=== PATIENT | female | born 1990 | race Hispanic/Latino ===

== ENCOUNTER 2019-04-07 12:48 | Emergency (ER) | payer SELFPAY ==
[2019-04-07 13:45] LABS: Urine Blood NEGATIVE (NEG); Urine Glucose NEGATIVE (NEG); Urine Protein 2+ (NEG); Urine Specific Gravity >1.030 (1.005-1.030)
[2019-04-07] MEDS ORDERED: NA CHLORIDE 0.9% 1,000 ML ONE (14:41)
[2019-04-07 14:42] LABS: Absolute Lymphocytes (CBC) 1.5 K/uL (0.7-4.9); Absolute Monocytes 1.1 K/uL (0.1-1.3); Absolute Neutrophil 6.9 K/uL (1.8-8.0); Basophils % 0.3 % (0-1.3); Hematocrit 40.3 % (36.0-45.0); MPV 8.1 fL (7.6-11.3); Monocytes % 11.8 % (3.3-12.3); RBC Red Blood Cell Count 4.63 M/uL (3.86-4.86)
[2019-04-07] MEDS ORDERED: ONDANSETRON 4 MG/2 ML VIAL ONE (14:53)
[2019-04-07 15:05] LABS: BUN Blood Urea Nitrogen 8 mg/dL (7-18); Bicarbonate 27 mmol/L (21-32); Glucose Level 85 mg/dL (74-106); Sodium Level 140 mmol/L (136-145)
--- NOTE | 2019-04-07 15:31 | EDPHYS ---
Physician Documentation [facility] Name: Christa Waite Age: 28 yrs Sex: Female : 1990 Arrival Date: 04/07/2019 Time: 12:51 Bed 24 Private MD: ED Physician Al Whiting HPI: 04/07 14:15 This 28 yrs old Female presents to ER via Ambulatory with complaints of Fever, kb Diarrhea. 14:15 The patient reports fever, that was measured at 102 degrees Fahrenheit, with an kb emergency department temperature of 97.1 degrees Fahrenheit. Onset: The symptoms/episode began/occurred 3 day(s) ago. Modifying factors: there are no obvious modifying factors. Associated signs and symptoms: Pertinent positives: chills, diarrhea, myalgias, sore throat. Severity of symptoms: At their worst the symptoms were moderate in the emergency department the symptoms are unchanged. The patient has not experienced similar symptoms in the past. The patient has not recently seen a physician. 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 - Social history:: Smoking status: Patient uses tobacco products, denies chronic smoking, but will smoke occasionally. - Ebola Screening: : No symptoms or risks identified at this time. ROS: 14:13 Neck: Negative for injury, pain, and swelling, Cardiovascular: Negative for chest pain, kb palpitations, and edema, Respiratory: Negative for shortness of breath, cough, wheezing, and pleuritic chest pain, Back: Negative for injury and pain, : Negative for injury, bleeding, discharge, and swelling, MS/Extremity: Negative for injury and deformity, Skin: Negative for injury, rash, and discoloration, Neuro: Negative for headache, weakness, numbness, tingling, and seizure. 14:13 Constitutional: Positive for body aches, chills, fatigue, fever, malaise, Negative for poor PO intake, weight loss. 14:13 ENT: Positive for sore throat. 14:13 Abdomen/GI: Positive for diarrhea, Negative for abdominal pain, nausea and vomiting, constipation. Exam: 14:13 Constitutional: This is a well developed, well nourished patient who is awake, alert, kb and in no acute distress. Head/Face: Normocephalic, atraumatic. Neck: Trachea midline, no thyromegaly or masses palpated, and no cervical lymphadenopathy. Supple, full range of motion without nuchal rigidity, or vertebral point tenderness. No Meningismus. Chest/axilla: Normal chest wall appearance and motion. Nontender with no deformity. No lesions are appreciated. Cardiovascular: Regular rate and rhythm with a normal S1 and S2. No gallops, murmurs, or rubs. Normal PMI, no JVD. No pulse deficits. Respiratory: Lungs have equal breath sounds bilaterally, clear to auscultation and percussion. No rales, rhonchi or wheezes noted. No increased work of breathing, no retractions or nasal flaring. Abdomen/GI: Soft, non-tender, with normal bowel sounds. No distension or tympany. No guarding or rebound. No evidence of tenderness throughout. Skin: Warm, dry with normal turgor. Normal color with no rashes, no lesions, and no evidence of cellulitis. MS/ Extremity: Pulses equal, no cyanosis. Neurovascular intact. Full, normal range of motion. Neuro: Awake and alert, GCS 15, oriented to person, place, time, and situation. Cranial nerves II-XII grossly intact. Motor strength 5/5 in all extremities. Sensory grossly intact. Cerebellar exam normal. Normal gait. 14:13 ENT: External ear(s): are unremarkable, Ear canal(s): are normal, TM's: are normal, Nose: is normal, Mouth: is normal, Posterior pharynx: Airway: normal, Tonsils: bilaterally enlarged, with erythema, with exudate, Uvula: normal, midline, swelling, that is moderate, erythema, that is marked, exudate, that is moderate. Vital Signs: 12:58 BP 131 / 72; Pulse 88; Resp 16; Temp 97.1; Pulse Ox 99% on R/A; Weight 104.33 kg; hb Height 5 ft. 3 in. (160.02 cm); Pain 7/10; 14:32 BP 130 / 95; Pulse 71; Resp 17 S; Temp 97.5(O); Pulse Ox 98% on R/A; ca1 15:40 BP 106 / 67; Pulse 72; Resp 17 S; Temp 98.1(O); Pulse Ox 100% on R/A; ca1 12:58 Body Mass Index 40.74 (104.33 kg, 160.02 cm) hb MDM: 13:00 Patient medically screened. kb 14:14 Data reviewed: vital signs, nurses notes. Data interpreted: Pulse oximetry: on room air kb is 99 %. Interpretation: normal. 15:29 Counseling: I had a detailed discussion with the patient and/or guardian regarding: the kb historical points, exam findings, and any diagnostic results supporting the discharge/admit diagnosis, lab results, the need for outpatient follow up, a family practitioner, to return to the emergency department if symptoms worsen or persist or if there are any questions or concerns that arise at home. 04/07 13:36 Order name: Strep; Complete Time: 14:18 kb 04/07 13:36 Order name: Flu; Complete Time: 14:36 kb 04/07 13:37 Order name: Urine Dipstick--Ancillary (enter results); Complete Time: 13:51 em1 04/07 13:37 Order name: Urine --Ancillary (enter results); Complete Time: 13:51 em1 04/07 14:17 Order name: Throat Culture EDGA 04/07 14:18 Order name: [place] Screen Profile; Complete Time: 15:00 kb 04/07 13:38 Order name: Urine Dipstick-Ancillary (obtain specimen); Complete Time: 13:39 em1 04/07 13:38 Order name: Urine Test (obtain specimen); Complete Time: 13:39 em1 04/07 14:18 Order name: IV Start; Complete Time: 14:31 kb 04/07 14:20 Order name: CBC with Diff; Complete Time: 14:53 kb 04/07 14:20 Order name: Basic Metabolic Panel; Complete Time: 15:10 kb Administered Medications: 14:25 Drug: NS 0.9% 1000 ml Route: IV; Rate: 1000 ml; Site: right antecubital; ca1 15:27 Follow up: Response: No adverse reaction; IV Status: Completed infusion ca1 14:41 Drug: Zofran 4 mg Route: IVP; Site: right antecubital; ca1 15:27 Follow up: Response: No adverse reaction; Nausea is decreased; Vomiting decreased ca1 15:29 Drug: Potassium Chloride 40 mEq Route: PO; mg2 16:05 Follow up: Response: No adverse reaction ca1 Disposition: 16:32 Co-signature as Attending Physician, Al Whiting MD. rn Disposition: 04/07/19 15:30 Discharged to Home. Impression: Acute pharyngitis, Diarrhea, unspecified. - Condition is Stable. - Discharge Instructions: Food Choices to Help Relieve Diarrhea, Adult, Viral Gastroenteritis, Adult, [id number], Pharyngitis, [id number]. - Prescriptions for Bentyl 20 mg Oral Tablet - take 1 tablet by ORAL route every 6 hours As needed; 20 tablet. Zofran 4 mg Oral Tablet - take 1 tablet by ORAL route every 6 hours As needed; 20 tablet. - Medication Reconciliation Form, Thank You Letter, Antibiotic Education, Prescription Opioid Use form. - Follow up: Emergency Department; When: As needed; Reason: Worsening of condition. Follow up: Private Physician; When: 2 - 3 days; Reason: Recheck today's complaints, Continuance of care, Re-evaluation by your physician. Signatures: Dispatcher [employer] EDMS Hawa Scott, ENVIRONMENTAL PERMITTING SPECIALIST-C ENVIRONMENTAL PERMITTING SPECIALIST-Ckb Al Whiting MD MD rn Martinez, Eric [facility] Deborah Vail, KELECHI RN Saran Ortiz RN RN mg2 Teresa Greenwood RN RN ca1 Corrections: (The following items were deleted from the chart) 16:11 15:30 04/07/2019 15:30 Discharged to Home. Impression: Acute pharyngitis; Diarrhea, ca1 unspecified. Condition is Stable. Forms are Medication Reconciliation Form, Thank You Letter, Antibiotic Education, Prescription Opioid Use. Follow up: Emergency Department; When: As needed; Reason: Worsening of condition. Follow up: Private Physician; When: 2 - 3 days; Reason: Recheck today's complaints, Continuance of care, Re-evaluation by your physician. kb
--- NOTE | 2019-04-07 15:31 | ER ---
Nurse's Notes [facility] Name: Christa Waite Age: 28 yrs Sex: Female : 1990 Arrival Date: 04/07/2019 Time: 12:51 Bed 24 Private MD: Diagnosis: Acute pharyngitis;Diarrhea, unspecified Presentation: 04/07 12:57 Presenting complaint: N/V/D, sore throat, fever, and body aches x 3 days. TMAX 103. hb Transition of care: patient was not received from another setting of care. Onset of symptoms was April 05, 2019. Risk Assessment: Do you want to hurt yourself or someone else? Patient reports no desire to harm self or others. Care prior to arrival: None. 12:57 Method Of Arrival: Ambulatory hb 12:57 Acuity: NASIR 4 hb 13:09 Initial Sepsis Screen: Does the patient meet any 2 criteria? No. Patient's initial ca1 sepsis screen is negative. Does the patient have a suspected source of infection? No. Patient's initial sepsis screen is negative. RN SUPPORT SERVICES: 12:59 LMP 03/18/2019 hb Historical: - Allergies: 12:59 No Known Allergies; hb - Home Meds: 12:59 None [Active]; hb - PMHx: 12:59 None; hb - PSHx: 12:59 Cholecystectomy; hb - Immunization history:: Adult Immunizations up to date. - Social history:: Smoking status: Patient uses tobacco products, denies chronic smoking, but will smoke occasionally. - Ebola Screening: : No symptoms or risks identified at this time. Screenin:08 Abuse screen: Denies threats or abuse. Denies injuries from another. Nutritional ca1 screening: No deficits noted. Tuberculosis screening: No symptoms or risk factors identified. Fall Risk None identified. Assessment: 13:08 General: Appears in no apparent distress. comfortable, Behavior is calm, cooperative, ca1 appropriate for age, Reports fever for 2-3 days. 13:08 Pain: Complains of pain in all over. Bodyaches, Throat. Pain currently is 7 out of 10 ca1 on a pain scale. Pain began 2-3 days ago. 13:08 Neuro: Level of Consciousness is awake, alert, obeys commands, Oriented to person, ca1 place, time, situation. Cardiovascular: Heart tones S1 S2 present Capillary refill < 3 seconds Patient's skin is warm and dry. Respiratory: Airway is patent Respiratory effort is even, unlabored, Respiratory pattern is regular, symmetrical, Breath sounds are clear bilaterally. Respiratory: Reports cough that is since 2 days ago. GI: Abdomen is round non-distended, Bowel sounds present X 4 quads. Abd is soft and non tender X 4 quads. Reports diarrhea, since yesterday. : No deficits noted. No signs and/or symptoms were reported regarding the genitourinary system. EENT: Reports nasal congestion since 2 days. Derm: Skin is intact, is healthy with good turgor, Skin is pink, warm \T\ dry. Musculoskeletal: Circulation, motion, and sensation intact. Capillary refill < 3 seconds. 13:55 Reassessment: Patient appears in no apparent distress at this time. Patient and/or ca1 family updated on plan of care and expected duration. Pain level reassessed. Patient is alert, oriented x 3, equal unlabored respirations, skin warm/dry/pink. 14:42 Reassessment: Pt actively vomiting. Notified provider. Meds ordered and administered. ca1 15:40 Reassessment: Patient appears in no apparent distress at this time. Patient is alert, ca1 oriented x 3, equal unlabored respirations, skin warm/dry/pink. Patient states feeling better. Vital Signs: 12:58 BP 131 / 72; Pulse 88; Resp 16; Temp 97.1; Pulse Ox 99% on R/A; Weight 104.33 kg; hb Height 5 ft. 3 in. (160.02 cm); Pain 7/10; 14:32 BP 130 / 95; Pulse 71; Resp 17 S; Temp 97.5(O); Pulse Ox 98% on R/A; ca1 15:40 BP 106 / 67; Pulse 72; Resp 17 S; Temp 98.1(O); Pulse Ox 100% on R/A; ca1 12:58 Body Mass Index 40.74 (104.33 kg, 160.02 cm) hb ED Course: 12:51 Patient arrived in ED. mr 12:58 Triage completed. hb 12:59 [facility] Scott [facility]C [facility] kb 12:59 Al Whiting MD is Attending Physician. kb 12:59 Arm band placed on. hb 13:08 Teresa Greenwood, RN is Primary Nurse. ca1 13:08 Patient has correct armband on for positive identification. Placed in gown. Bed in low ca1 position. Call light in reach. Side rails up X 1. Pulse ox on. NIBP on. Warm blanket given. 13:08 No provider procedures requiring assistance completed. ca1 14:25 Inserted saline lock: 20 gauge in right antecubital area, using aseptic technique. ca1 Blood collected. 16:05 IV discontinued, intact, bleeding controlled, No redness/swelling at site. Pressure ca1 dressing applied. Administered Medications: 14:25 Drug: NS 0.9% 1000 ml Route: IV; Rate: 1000 ml; Site: right antecubital; ca1 15:27 Follow up: Response: No adverse reaction; IV Status: Completed infusion ca1 14:41 Drug: Zofran 4 mg Route: IVP; Site: right antecubital; ca1 15:27 Follow up: Response: No adverse reaction; Nausea is decreased; Vomiting decreased ca1 15:29 Drug: Potassium Chloride 40 mEq Route: PO; mg2 16:05 Follow up: Response: No adverse reaction ca1 Outcome: 15:30 Discharge ordered by . kb 16:05 Discharged to home ambulatory. ca1 16:05 Condition: stable 16:05 Discharge instructions given to patient, Instructed on discharge instructions, follow up and referral plans. medication usage, Demonstrated understanding of instructions, follow-up care, medications, Prescriptions given X 2. 16:11 Patient left the ED. ca1 Signatures: Hawa Scott, RACHEEL-C ASSEMBLER RADIO AND ELECTRICAL-Regan Pau [place] Deborah Vail RN RN Saran Ortiz RN RN mg2 Teresa Greenwood RN RN ca1 Corrections: (The following items were deleted from the chart) 12:59 12:57 Acuity: NASIR 3 hb hb 14:12 13:08 General: Appears in no apparent distress. comfortable, Behavior is calm, ca1 cooperative, appropriate for age, Reports fever for 2-3 days, ca1
[2019-04-07] MEDS ORDERED: POTASSIUM CL SA 10 MEQ TAB PO ONE (15:38)
[2019-04-07 18:35] VITALS: BP 106/67; TEMP 98.1; O2SAT 100
== END 2019-04-07 16:11 | disposition home or self-care (01) ==
LOC: ER 12:48
DX: J02.9 Acute pharyngitis, unspecified (principal); R19.7 Diarrhea, unspecified; Z72.0 Tobacco use
CPT/HCPCS: 36415; 80048; 81003; 81025; 85025; 86308; 87070; 87081; 87804; 96361; 96374; 99284; J2405; J7030

== ENCOUNTER 2020-08-09 14:16 | Emergency (ER) | payer SELFPAY ==
[2020-08-09] MEDS ORDERED: LIDOCAINE 1% MPF 5 ML VIAL ONE (14:42)
[2020-08-09] MEDS ORDERED: TETANUS & DIPHTHERIA TOX,ADULT 0.5 ML VIAL ONE (14:43)
--- NOTE | 2020-08-09 14:57 | EDPHYS ---
Physician Documentation [facility] Name: Christa Waite Age: 29 yrs Sex: Female : 1990 Arrival Date: 08/09/2020 Time: 14:18 Bed 14 Private MD: ED Physician Lukas Corral HPI: 08/09 14:54 This 29 yrs old Female presents to ER via Ambulatory with complaints of Finger kb Injury - laceration. 14:56 The patient has a laceration related to: cooking, from a knife, occurred at home, and kb there are no complicating factors. The injury was accidental. The laceration(s) is(are) located on the Palmar aspect of proximal phalanx of right little finger. Onset: The symptoms/episode began/occurred just prior to arrival. Associated signs and symptoms: The patient has no apparent associated signs or symptoms. The patient has not experienced similar symptoms in the past. The patient has not recently seen a physician. 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 - Social history:: Smoking status: Patient denies any tobacco usage or history of. ROS: 14:53 Constitutional: Negative for fever, chills, and weight loss, Cardiovascular: Negative kb for chest pain, palpitations, and edema, Respiratory: Negative for shortness of breath, cough, wheezing, and pleuritic chest pain, Abdomen/GI: Negative for abdominal pain, nausea, vomiting, diarrhea, and constipation, MS/Extremity: Negative for injury and deformity, Neuro: Negative for headache, weakness, numbness, tingling, and seizure. 14:53 Skin: Positive for laceration(s), of the Palmar aspect of proximal phalanx of right little finger. Exam: 14:53 Constitutional: This is a well developed, well nourished patient who is awake, alert, kb and in no acute distress. Head/Face: Normocephalic, atraumatic. Chest/axilla: Normal chest wall appearance and motion. Nontender with no deformity. No lesions are appreciated. Cardiovascular: Regular rate and rhythm with a normal S1 and S2. No gallops, murmurs, or rubs. Normal PMI, no JVD. No pulse deficits. Respiratory: Lungs have equal breath sounds bilaterally, clear to auscultation and percussion. No rales, rhonchi or wheezes noted. No increased work of breathing, no retractions or nasal flaring. Abdomen/GI: Soft, non-tender, with normal bowel sounds. No distension or tympany. No guarding or rebound. No evidence of tenderness throughout. Back: No spinal tenderness. No costovertebral tenderness. Full range of motion. MS/ Extremity: Pulses equal, no cyanosis. Neurovascular intact. Full, normal range of motion. Neuro: Awake and alert, GCS 15, oriented to person, place, time, and situation. Cranial nerves II-XII grossly intact. Motor strength 5/5 in all extremities. Sensory grossly intact. Cerebellar exam normal. Normal gait. 14:53 Skin: injury, laceration(s), the wound is approximately 2 cm(s), of the Palmar aspect of proximal phalanx of right little finger, that can be described as clean, no foreign body, linear, without bleeding. Vital Signs: 14:22 BP 128 / 85; Pulse 81; Resp 17 S; Pulse Ox 100% on R/A; Weight 108.86 kg (R); Height 5 ca1 ft. 3 in. (160.02 cm) (R); 14:22 Body Mass Index 42.51 (108.86 kg, 160.02 cm) ca1 Laceration: 14:55 Wound Repair of 2cm ( 0.8in ) subcutaneous laceration to Palmar aspect of proximal kb phalanx of right little finger. Linear shaped.. Distal neuro/vascular/tendon intact. Anesthesia: Wound infiltrated with 1.5 mls of 1% lidocaine. Wound prep: Extensive cleansing with hibiclenz by nurse by me, Wound irrigation with saline by nurse by me. Skin closed with 3 5-0 Prolene using simple sutures and sterile technique. Patient tolerated well. MDM: 14:19 Patient medically screened. 14:53 Data reviewed: vital signs, nurses notes. Data interpreted: Pulse oximetry: on room air kb is 100 %. Interpretation: normal. Counseling: I had a detailed discussion with the patient and/or guardian regarding: the historical points, exam findings, and any diagnostic results supporting the discharge/admit diagnosis, the need for outpatient follow up, a family practitioner, to return to the emergency department if symptoms worsen or persist or if there are any questions or concerns that arise at home. 08/09 14:25 Order name: Prolene, Sutures; Complete Time: 14:30 kb 08/09 14:25 Order name: Dressing - Wound; Complete Time: 14:42 kb 08/09 14:25 Order name: Gloves, Sterile; Complete Time: 14:30 kb 08/09 14:25 Order name: Setup Suture Tray; Complete Time: 14:30 kb Administered Medications: 14:40 Drug: Tetanus-Diphtheria Toxoid Adult 0.5 ml {Store Stock Associate: [employer]. Exp: ll2 01/09/2023. Lot #: [id number]. } Route: IM; Site: left deltoid; 15:06 Follow up: Response: No adverse reaction ll2 14:42 Drug: Lidocaine (1 %) 1 vials Volume: 5 ml; Route: Infiltration; ll2 15:06 Follow up: Response: No adverse reaction ll2 Disposition: 08/09/20 14:57 Discharged to Home. Impression: Laceration without foreign body of right little finger without damage to nail. - Condition is Stable. - Discharge Instructions: Laceration Care, Adult, [id number]. - Medication Reconciliation Form, Thank You Letter, Antibiotic Education, Prescription Opioid Use form. - Follow up: Emergency Department; When: As needed; Reason: Worsening of condition. Follow up: Private Physician; When: 2 - 3 days; Reason: Recheck today's complaints, Continuance of care, Re-evaluation by your physician. Addendum: 08/11/2020 17:01 Co-signature as Attending Physician, Lukas Corral MD I agree with the assessment and k dr plan of care. Signatures: Hawa Scott, WINDSHIELD INSTALLER-C WINDSHIELD INSTALLER-CkLukas Donaldson MD MD [facility] Acraquel, Teresa, RN RN ca1 Meli Dominique RN RN ll2 Corrections: (The following items were deleted from the chart) 08/09 15:05 14:57 08/09/2020 14:57 Discharged to Home. Impression: Laceration without foreign body ll2 of right little finger without damage to nail. Condition is Stable. Forms are Medication Reconciliation Form, Thank You Letter, Antibiotic Education, Prescription Opioid Use. Follow up: Emergency Department; When: As needed; Reason: Worsening of condition. Follow up: Private Physician; When: 2 - 3 days; Reason: Recheck today's complaints, Continuance of care, Re-evaluation by your physician. kb
--- NOTE | 2020-08-09 14:57 | ER ---
Nurse's Notes [facility] Name: Christa Waite Age: 29 yrs Sex: Female : 1990 Arrival Date: 08/09/2020 Time: 14:18 Bed 14 Private MD: Diagnosis: Laceration without foreign body of right little finger without damage to nail Presentation: 08/09 14:22 Chief complaint: Patient states: Lac 5th digit R hand by a knife. Coronavirus screen: ca1 Client denies travel out of the [place] in the last 14 days. At this time, the client does not indicate any symptoms associated with coronavirus-19. Ebola Screen: Patient negative for fever greater than or equal to 101.5 degrees Fahrenheit, and additional compatible Ebola Virus Disease symptoms Patient denies exposure to infectious person. Patient denies travel to an Ebola-affected area in the 21 days before illness onset. No symptoms or risks identified at this time. Initial Sepsis Screen: Does the patient meet any 2 criteria? No. Patient's initial sepsis screen is negative. Does the patient have a suspected source of infection? No. Patient's initial sepsis screen is negative. Risk Assessment: Do you want to hurt yourself or someone else? Patient reports no desire to harm self or others. Onset of symptoms was August 09, 2020. 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 - Social history:: Smoking status: Patient denies any tobacco usage or history of. Screenin:40 Abuse screen: Denies threats or abuse. Nutritional screening: No deficits noted. ll2 Tuberculosis screening: No symptoms or risk factors identified. Fall Risk None identified. Assessment: 14:38 General: Appears in no apparent distress. Behavior is calm, cooperative, appropriate ll2 for age. Pain: Complains of pain in Palmar aspect of proximal phalanx of right little finger Quality of pain is described as stinging. Neuro: Level of Consciousness is awake, alert, obeys commands, Oriented to person, place, time, situation. Cardiovascular: Capillary refill < 3 seconds Patient's skin is warm and dry. Respiratory: Airway is patent Respiratory effort is even, unlabored, Respiratory pattern is regular, symmetrical. GI: No signs and/or symptoms were reported involving the gastrointestinal system. : No signs and/or symptoms were reported regarding the genitourinary system. EENT: No signs and/or symptoms were reported regarding the EENT system. Derm: No signs and/or symptoms reported regarding the dermatologic system. Musculoskeletal: Circulation, motion, and sensation intact. Range of motion: intact in all extremities. Injury Description: Laceration sustained to Palmar aspect of proximal phalanx of right little finger is not bleeding. Vital Signs: 14:22 BP 128 / 85; Pulse 81; Resp 17 S; Pulse Ox 100% on R/A; Weight 108.86 kg (R); Height 5 ca1 ft. 3 in. (160.02 cm) (R); 14:22 Body Mass Index 42.51 (108.86 kg, 160.02 cm) ca1 ED Course: 14:18 Patient arrived in ED. as 14:19 [facility]C [facility]. kb 14:19 Lukas Corral MD is Attending Physician. kb 14:23 Triage completed. ca1 14:24 Arm band placed on right wrist. ca1 14:28 Meli Dominique, KELECHI is Primary Nurse. ll2 14:42 Wound care: to laceration located on Palmar aspect of proximal phalanx of right little ll2 finger was cleaned with Hibiclens, Patient tolerated well. 14:43 Patient has correct armband on for positive identification. Bed in low position. Call ll2 light in reach. 14:55 Dressings: Band aid x 1 Palmar aspect of proximal phalanx of right little finger. ll2 15:04 No provider procedures requiring assistance completed. Patient did not have IV access ll2 during this emergency room visit. Administered Medications: 14:40 Drug: Tetanus-Diphtheria Toxoid Adult 0.5 ml {Electrical Contacts Adjuster: Jumia. Exp: ll2 01/09/2023. Lot #: [id number]. } Route: IM; Site: left deltoid; 15:06 Follow up: Response: No adverse reaction ll2 14:42 Drug: Lidocaine (1 %) 1 vials Volume: 5 ml; Route: Infiltration; ll2 15:06 Follow up: Response: No adverse reaction ll2 Outcome: 14:57 Discharge ordered by MD. walsh 15:05 Discharged to home ambulatory. ll2 15:05 Condition: stable 15:05 Discharge instructions given to patient, Instructed on discharge instructions, follow up and referral plans. 15:05 Patient left the ED. ll2 Signatures: Hawa Scott, KUMAR JEFFREY-Sera Dow Cheryl, RN RN ca1 Meli Dominique, KELECHI RN ll2
[2020-08-09 15:36] VITALS: BP 128/85; O2SAT 100
== END 2020-08-09 15:05 | disposition home or self-care (01) ==
LOC: ER 14:16
PROC: 0JQJ0ZZ Repair Right Hand Subcutaneous Tissue and Fascia, Open Approach (ICD-10-PCS; principal; 2020-08-09)
DX: S61.216A Laceration without foreign body of right little finger without damage to nail, initial encounter (principal); W26.0XXA Contact with knife, initial encounter; Y93.G3 Activity, cooking and baking; Y92.000 Kitchen of unspecified non-institutional (private) residence as the place of occurrence of the external cause; Z23 Encounter for immunization
CPT/HCPCS: 90471; 90714; 99283

== ENCOUNTER 2020-08-19 11:38 | Emergency (ER) | payer SELFPAY ==
--- NOTE | 2020-08-19 12:33 | EDPHYS ---
Physician Documentation [facility] Name: Christa Waite Age: 29 yrs Sex: Female : 1990 Arrival Date: 08/19/2020 Time: 11:40 Bed 16 Private MD: ED Physician Lukas Corral HPI: 08/19 14:29 This 29 yrs old Female presents to ER via Ambulatory with complaints of Suture snw Removal. 14:29 The patient has sutures on the dorsal aspect of middle phalanx of right little finger. snw Previous treatment: the care was rendered at [facility], Treatment type: The patient's original treatment included sutures, 3 sutures placed. Sutures/joel progress: The patient has no c/o's. The wound is well-healing with no redness, swelling, discharge, or dehiscence reported. The patient has not experienced similar symptoms in the past. as noted. 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 - Social history:: Smoking status: Patient denies any tobacco usage or history of. ROS: 14:29 Constitutional: Negative for fever, chills, and weight loss, Eyes: Negative for injury, snw pain, redness, and discharge, ENT: Negative for injury, pain, and discharge, Neck: Negative for injury, pain, and swelling, Cardiovascular: Negative for chest pain, palpitations, and edema, Respiratory: Negative for shortness of breath, cough, wheezing, and pleuritic chest pain, Abdomen/GI: Negative for abdominal pain, nausea, vomiting, diarrhea, and constipation, Back: Negative for injury and pain, : Negative for injury, bleeding, discharge, and swelling, MS/Extremity: Negative for injury and deformity, Skin: Negative for injury, rash, and discoloration, Neuro: Negative for headache, weakness, numbness, tingling, and seizure, Psych: Negative for depression, anxiety, suicide ideation, homicidal ideation, and hallucinations. Exam: 14:28 Constitutional: This is a well developed, well nourished patient who is awake, alert, snw and in no acute distress. Head/Face: Normocephalic, atraumatic. Eyes: Pupils equal round and reactive to light, extra-ocular motions intact. Lids and lashes normal. Conjunctiva and sclera are non-icteric and not injected. Cornea within normal limits. Periorbital areas with no swelling, redness, or edema. ENT: Nares patent. No nasal discharge, no septal abnormalities noted. Tympanic membranes are normal and external auditory canals are clear. Oropharynx with no redness, swelling, or masses, exudates, or evidence of obstruction, uvula midline. Mucous membranes moist. Neck: Trachea midline, no thyromegaly or masses palpated, and no cervical lymphadenopathy. Supple, full range of motion without nuchal rigidity, or vertebral point tenderness. No Meningismus. Chest/axilla: Normal chest wall appearance and motion. Nontender with no deformity. No lesions are appreciated. Cardiovascular: Regular rate and rhythm with a normal S1 and S2. No gallops, murmurs, or rubs. Normal PMI, no JVD. No pulse deficits. Respiratory: Lungs have equal breath sounds bilaterally, clear to auscultation and percussion. No rales, rhonchi or wheezes noted. No increased work of breathing, no retractions or nasal flaring. Abdomen/GI: Soft, non-tender, with normal bowel sounds. No distension or tympany. No guarding or rebound. No evidence of tenderness throughout. Back: No spinal tenderness. No costovertebral tenderness. Full range of motion. MS/ Extremity: Pulses equal, no cyanosis. Neurovascular intact. Full, normal range of motion. Neuro: Awake and alert, GCS 15, oriented to person, place, time, and situation. Cranial nerves II-XII grossly intact. Motor strength 5/5 in all extremities. Sensory grossly intact. Cerebellar exam normal. Normal gait. Psych: Awake, alert, with orientation to person, place and time. Behavior, mood, and affect are within normal limits. 14:28 Skin: Appearance: normal except for affected area, Wound recheck: Suture laceration closure: the wound is healing well, the edges are well approximated, no evidence of dehiscence, no drainage, no erythema, no swelling. Vital Signs: 11:53 BP 141 / 56; Pulse 67; Resp 17 S; Temp 97.8(TE); Pulse Ox 100% on R/A; Weight 108.86 kg ca1 (R); Height 5 ft. 3 in. (160.02 cm) (R); Pain 0/10; 11:53 Body Mass Index 42.51 (108.86 kg, 160.02 cm) ca1 MDM: 12:04 Patient medically screened. snw 14:28 Data reviewed: vital signs, nurses notes. Data interpreted: Pulse oximetry: on room air snw is 100 %. Interpretation: normal. Counseling: I had a detailed discussion with the patient and/or guardian regarding: the historical points, exam findings, and any diagnostic results supporting the discharge/admit diagnosis, the need for outpatient follow up, to return to the emergency department if symptoms worsen or persist or if there are any questions or concerns that arise at home. Special discussion: Based on the history and exam findings, there is no indication for further emergent testing or inpatient evaluation. I discussed with the patient/guardian the need to see the primary care provider for further evaluation of the symptoms. Administered Medications: No medications were administered Disposition: 16:04 Co-signature as Attending Physician, Lukas Corral MD I agree with the assessment and kdr plan of care. Disposition: 08/19/20 12:32 Discharged to Home. Impression: Encounter for removal of sutures. - Condition is Stable. - Discharge Instructions: Suture Removal, Care After, Incision Care, Adult. - Medication Reconciliation Form, Thank You Letter, Antibiotic Education, Prescription Opioid Use form. - Follow up: Emergency Department; When: As needed; Reason: Worsening of condition. Follow up: Private Physician; When: 2 - 3 days; Reason: Recheck today's complaints, Continuance of care, Re-evaluation by your physician. Signatures: Lukas Corral MD MD kdr Waters, Shelly, SALES FLOOR TEAM MEMBER-C SALES FLOOR TEAM MEMBER-Carmenw Reji Li RN RN jd3 AcTeresa garcía RN RN ca1 Corrections: (The following items were deleted from the chart) 12:44 12:32 08/19/2020 12:32 Discharged to Home. Impression: Encounter for removal of jd3 sutures. Condition is Stable. Forms are Medication Reconciliation Form, Thank You Letter, Antibiotic Education, Prescription Opioid Use. Follow up: Emergency Department; When: As needed; Reason: Worsening of condition. Follow up: Private Physician; When: 2 - 3 days; Reason: Recheck today's complaints, Continuance of care, Re-evaluation by your physician. snw
--- NOTE | 2020-08-19 12:33 | ER ---
Nurse's Notes [facility] Name: Christa Waite Age: 29 yrs Sex: Female : 1990 Arrival Date: 08/19/2020 Time: 11:40 Bed 16 Private MD: Diagnosis: Encounter for removal of sutures Presentation: 08/19 11:53 Chief complaint: Patient states: For suture removal on the 5th digit. Suture done on ca1 the 08/09/2020. Healing well, lac repair appears dry and intact. Coronavirus screen: Client denies travel out of the [place] in the last 14 days. At this time, the client does not indicate any symptoms associated with coronavirus-19. Ebola Screen: Patient negative for fever greater than or equal to 101.5 degrees Fahrenheit, and additional compatible Ebola Virus Disease symptoms Patient denies exposure to infectious person. Patient denies travel to an Ebola-affected area in the 21 days before illness onset. No symptoms or risks identified at this time. Initial Sepsis Screen: Does the patient meet any 2 criteria? No. Patient's initial sepsis screen is negative. Does the patient have a suspected source of infection? No. Patient's initial sepsis screen is negative. Risk Assessment: Do you want to hurt yourself or someone else? Patient reports no desire to harm self or others. Onset of symptoms was August 19, 2020. 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 - Social history:: Smoking status: Patient denies any tobacco usage or history of. Screenin:23 Abuse screen: Denies threats or abuse. Nutritional screening: No deficits noted. jd3 Tuberculosis screening: No symptoms or risk factors identified. Fall Risk Ambulatory Aid- None/Bed Rest/Nurse Assist (0 pts). Gait- Normal/Bed Rest/Wheelchair (0 pts) Mental Status- Oriented to own ability (0 pts). Total Miller Fall Scale indicates No Risk (0-24 pts). Assessment: 12:22 General: Appears in no apparent distress. comfortable, Behavior is calm, cooperative, jd3 appropriate for age. Pain: Denies pain. Neuro: Level of Consciousness is awake, alert, obeys commands, Oriented to person, place, time, situation. Cardiovascular: Denies chest pain, Capillary refill < 3 seconds Patient's skin is warm and dry. Respiratory: Airway is patent Respiratory effort is even, unlabored, Respiratory pattern is regular, symmetrical. GI: No signs and/or symptoms were reported involving the gastrointestinal system. : No signs and/or symptoms were reported regarding the genitourinary system. EENT: No signs and/or symptoms were reported regarding the EENT system. Derm: Skin is intact, Skin is dry, Skin is normal, Skin temperature is warm sutures to be removed from 5 th finger of right hand. provider at beside removing sutures. Musculoskeletal: Circulation, motion, and sensation intact. Range of motion: intact in all extremities. Vital Signs: 11:53 BP 141 / 56; Pulse 67; Resp 17 S; Temp 97.8(TE); Pulse Ox 100% on R/A; Weight 108.86 kg ca1 (R); Height 5 ft. 3 in. (160.02 cm) (R); Pain 0/10; 11:53 Body Mass Index 42.51 (108.86 kg, 160.02 cm) ca1 ED Course: 11:40 Patient arrived in ED. as 11:59 Triage completed. ca1 11:59 Arm band placed on right wrist. ca1 12:04 Guerda Jones FNP-C is [facility]. snw 12:04 Lukas Corral MD is Attending Physician. snw 12:22 Reji Li RN is Primary Nurse. jd3 12:24 Patient has correct armband on for positive identification. Bed in low position. Call jd3 light in reach. Side rails up X 1. Adult w/ patient. Pulse ox on. NIBP on. 12:24 suture removal. Patient did not have IV access during this emergency room visit. jd3 Administered Medications: No medications were administered Outcome: 12:32 Discharge ordered by . snw 12:43 Discharged to home ambulatory. jd3 12:43 Condition: stable 12:43 Discharge instructions given to patient, Instructed on discharge instructions, follow up and referral plans. Demonstrated understanding of instructions, follow-up care. 12:44 Patient left the ED. jd3 Signatures: Guerda Jones, RACHELE-C TEST CAR DRIVER-Sera Lagunas Jonathon, RN RN jd3 Teresa Greenwood RN RN ca1
[2020-08-19 12:55] VITALS: BP 141/56; TEMP 97.8; O2SAT 100
== END 2020-08-19 12:44 | disposition home or self-care (01) ==
LOC: ER 11:38
DX: Z48.02 Encounter for removal of sutures (principal)
CPT/HCPCS: 99283

== ENCOUNTER 2024-08-31 15:17 | Emergency (ER) | payer SELFPAY ==
--- OUTSIDE RECORDS SUMMARY | 2024-08-31 15:19 | XMS REPORT | Continuity of Care Document ---
Author Name Unknown Address [address] [place] [address] [facility] thconnect Address [address] [place] [address] Care Team Providers Care Procurement Representative Name Role Phone PCP, PATIENT DOES NOT HAVE A Primary Care Physic amie Unavailable OSCAR GRAFF Attending Clinician Unavailable Allergies, Adverse Reactions, Alerts Allergy Name Allergy Type Status Severity Reaction(s) Onset Date Inactive Date Treating Clinician Comments Source NO KNOWN ALLERGIE S Drug Class Active [facility] Encounters Start Date/Time End Date/Time Encounter Type Admission Type Attending Clinicians Care Facility Care Department Encounter ID Source 2023-09-23 09:00:00 2023-09-23 09:00:00 Outpatient R OSCAR GRAFF [facility] [id number] [facility]
[2024-08-31] MEDS ORDERED: ALBUTEROL 2.5 MG/3 ML NEB SOL ONE (15:38)
[2024-08-31] MEDS ORDERED: IPRATROPIUM BROM 0.5MG/2.5ML ONE (15:38)
[2024-08-31] MEDS ORDERED: dexAMETHasone 10 MG/ML VIAL ONE (15:38)
[2024-08-31 16:06] LABS: SARS-CoV-2 Antigen CONTROL BLUE LINE VIS/BG OK; SARS-CoV-2 Antigen Rapid Res Negative (Negative)
--- NOTE | 2024-08-31 17:49 | RAD REPORT ---
EXAMINATION: ONE VIEW CHEST XR CLINICAL INDICATION: Female, 33 years old.,Fever;Dyspnea TECHNIQUE: Frontal chest projection is submitted. Examination is limited by patient positioning and t echnique. COMPARISON: 12/11/2015 FINDINGS: The lungs are well inflated and clear. No pneumothorax or sizable effusion. The heart is normal in s ize. IMPRESSION: No acute intrathoracic abnormalities.
--- NOTE | 2024-08-31 18:00 | EDPHYS ---
Physician Documentation [facility] Name: Christa Waite Age: 33 yrs Sex: Female : 1990 Arrival Date: 08/31/2024 Time: 15:17 Bed 14 Private MD: ED Physician Gentry Anand HPI: 08/31 19:40 This 33 yrs old Female presents to ER via Ambulatory with complaints of kb Shortness Of Breath. 19:40 Pt is a 33 year old female who presents for cough, shortness of breath, wheezing and kb sore throat that started 4 days ago. States she has had similar symptoms in the past due to bronchitis. Denies n/v/d, fever. No aggravating or alleviating factors. Historical: - Allergies: 15:29 No Known Allergies; ap3 - Home Meds: 15:29 None [Active]; ap3 - PMHx: 15:29 None; ap3 - Immunization history:: Client reports receiving the 2nd dose of the Covid vaccine, Flu vaccine is not up to date. - Infectious Disease History:: Denies. - Social history:: Smoking status: Patient denies any tobacco usage or history of. ROS: 19:40 Constitutional: As per HPI kb Exam: 19:40 Constitutional: This is a well developed, well nourished patient who is awake, alert, kb and in no acute distress. Head/Face: Normocephalic, atraumatic. ENT: Moist Mucous membranes Cardiovascular: Regular rate Respiratory: Respirations even and unlabored. No increased work of breathing. Talking in full sentences Skin: Warm, dry with normal turgor. Normal color. MS/ Extremity: Pulses equal, no cyanosis. Neurovascular intact. Full, normal range of motion. Neuro: Awake and alert, GCS 15, oriented to person, place, time, and situation. Vital Signs: 15:25 BP 111 / 69; Pulse 71; Resp 24; Temp 98.1(O); Pulse Ox 100% ; Weight 104.33 kg; Height ap3 5 ft. 3 in. ; 18:00 BP 115 / 72; Pulse 74; Resp 17; Pulse Ox 99% on R/A; rs5 15:25 Body Mass Index 40.74 (104.33 kg, 160.02 cm) ap3 MDM: 15:23 Medical Screening Exam initiated kb 19:41 Differential diagnosis: flu, covid, strep, pneumonia, uri. Data reviewed: vital signs, kb nurses notes. I considered the following discharge prescriptions or medication management in the emergency department I discussed and recommended Over The Counter medications, Antibiotics: At this time antibiotics are not recommended. Counseling: I had a detailed discussion with the patient and/or guardian regarding the historical points, exam findings, and any diagnostic results supporting the discharge/admit diagnosis, lab results, radiology results, the need for outpatient follow up, a family practitioner, to return to the emergency department if symptoms worsen or persist or if there are any questions or concerns that arise at home. 08/31 15:27 Order name: Flu; Complete Time: 16:12 kb 08/31 15:27 Order name: SARS-COV-2 Antigen Rapid; Complete Time: 16:12 kb 08/31 15:27 Order name: Strep kb 08/31 16:07 Order name: Throat Culture EDMS 08/31 15:27 Order name: Chest Single View XRAY; Complete Time: 17:49 kb Administered Medications: 15:47 Drug: Dexamethasone IM 10 mg IM once Route: IM; Site: left deltoid; rs5 16:20 Follow up: Response: No adverse reaction rs5 15:47 Drug: Albuterol Inhalation 2.5 mg Inhalation once Route: Inhalation; rs5 16:20 Follow up: Response: No adverse reaction rs5 15:47 Drug: Ipratropium Inhalation Aerosol 0.5 mg Inhalation once Route: Inhalation; rs5 16:20 Follow up: Response: No adverse reaction rs5 Disposition Summary: 08/31/24 17:59 Discharge Ordered Notes: Location: Home kb Condition: Stable kb Diagnosis - Acute bronchitis, unspecified kb Followup: kb - With: Emergency Department - When: As needed - Reason: Worsening of condition Followup: kb - With: Private Physician - When: 2 - 3 days - Reason: Recheck today's complaints, Continuance of care, Re-evaluation by your physician Discharge Instructions: - Discharge Summary Sheet kb - Acute Bronchitis, Adult, [id number] kb Forms: - Medication Reconciliation Form kb - Antibiotic Education kb - Prescription Opioid Use kb - Patient Portal Instructions kb - Leadership Thank You Letter kb Prescriptions: - albuterol sulfate 90 mcg/actuation Inhalation HFA Aerosol Inhaler - inhale 2 puff INHALATION route every 4-6 hours As needed as needed for kb shortness of breath or wheezing; 1 Unspecified; Refills: 0, Product Selection Permitted - Prednisone 20 mg Oral Tablet - take 1 tablet ORAL route once daily for 5 days; 5 tablet; Refills: 0, Product kb Selection Permitted Signatures: Dispatcher [employer] EDMS Hawa Scott, Camilla Robbins RN RN ap3 Mikey Hilton RN RN rs5 Corrections: (The following items were deleted from the chart) 15:27 15:27 Influenza Screen (A \T\ B)+BA.LAB.BRZ ordered. EDMS EDMS 15:27 15:27 SARS-COV-2 Antigen Rapid+I.LAB.BRZ ordered. EDMS EDMS 15:27 15:27 Group A Streptococcus Rapid Sc+BA.LAB.BRZ ordered. EDMS EDMS 15:27 15:27 Chest Single View+RAD.RAD.BRZ ordered. EDMS EDMS
--- NOTE | 2024-08-31 18:00 | ER ---
Nurse's Notes [facility] Name: Christa Waite Age: 33 yrs Sex: Female : 1990 Arrival Date: 08/31/2024 Time: 15:17 Bed 14 Private MD: Diagnosis: Acute bronchitis, unspecified Presentation: 08/31 15:25 Chief complaint: Patient states: she has been sick since Friday and has had an increase ap3 in shortness of breath. patient states it started with a sore throat Friday08/27/24, and by Friday patient sates she had lost her voice. Coronavirus screen: Client presents with at least one sign or symptom that may indicate coronavirus-19. Ebola Screen: No symptoms or risks identified at this time. Initial Sepsis Screen: Does the patient meet any 2 criteria? RR > 20 per min. Does the patient have a suspected source of infection? No. Patient's initial sepsis screen is negative. Risk Assessment: Do you want to hurt yourself or someone else? Patient reports no desire to harm self or others. Onset of symptoms was August 27, 2024. 15:25 Method Of Arrival: Ambulatory ap3 15:25 Acuity: NASIR 3 ap3 Triage Assessment: 15:29 General: Appears distressed, Behavior is calm, cooperative, appropriate for age. Pain: ap3 Denies pain. Neuro: Level of Consciousness is awake, alert, obeys commands, Oriented to person, place, time, situation, Appropriate for age. Cardiovascular: Patient's skin is warm and dry. Respiratory: Reports shortness of breath Airway is patent Respiratory effort is labored, Respiratory pattern is regular, tachypnea Breath sounds with wheezes in right upper lobe and left upper lobe Onset: The symptoms/episode began/occurred gradually, the patient has moderate shortness of breath. Historical: - Allergies: 15:29 No Known Allergies; ap3 - Home Meds: 15:29 None [Active]; ap3 - PMHx: 15:29 None; ap3 - Immunization history:: Client reports receiving the 2nd dose of the Covid vaccine, Flu vaccine is not up to date. - Infectious Disease History:: Denies. - Social history:: Smoking status: Patient denies any tobacco usage or history of. Screenin:30 Abuse screen: Denies threats or abuse. Nutritional screening: No deficits noted. ap3 Tuberculosis screening: No symptoms or risk factors identified. 15:30 [facility] ED Fall Risk Assessment (Adult) History of falling in the last 3 months, ap3 including since admission No falls in past 3 months (0 pts) Confusion or Disorientation No (0 pts) Intoxicated or Sedated No (0 pts) Impaired Gait No (0 pts) Mobility Assist Device Used No (0 pt) Altered Elimination No (0 pt) Score/Fall Risk Level 0 - 2 = Low Risk Oriented to surroundings, Maintained a safe environment, Educated pt \T\ family on fall prevention, incl call for assistance when getting out of bed, Assessed \T\ reinforced patient's understanding of fall precautions, Hourly rounding (assess needs \T\ fall precautionary measures) done, Used ambulatory aids as needed (educated on \T\ assisted with), Used gait belt as appropriate. Assessment: 15:35 General: Appears in no apparent distress. uncomfortable, Behavior is calm, cooperative. rs5 Pain: Denies pain. Neuro: Level of Consciousness is awake, alert, obeys commands, Oriented to person, place, time, situation. Cardiovascular: Patient's skin is warm and dry. Rhythm is regular. Respiratory: Airway is patent Respiratory effort is even, unlabored, Respiratory pattern is regular, symmetrical. GI: Abdomen is round non-distended, Abd is soft and non tender X 4 quads. : No signs and/or symptoms were reported regarding the genitourinary system. EENT: No signs and/or symptoms were reported regarding the EENT system. Derm: Skin is intact, Skin is pink, warm \T\ dry. Musculoskeletal: Range of motion: intact in all extremities. 16:41 Reassessment: Patient and/or family updated on plan of care and expected duration. Pain rs5 level reassessed. Patient is alert, oriented x 3, equal unlabored respirations, skin warm/dry/pink. Patient states feeling better. Patient states symptoms have improved. 17:51 Reassessment: Patient and/or family updated on plan of care and expected duration. Pain rs5 level reassessed. Patient is alert, oriented x 3, equal unlabored respirations, skin warm/dry/pink. 18:10 Reassessment: No changes from previously documented assessment. rs5 Vital Signs: 15:25 BP 111 / 69; Pulse 71; Resp 24; Temp 98.1(O); Pulse Ox 100% ; Weight 104.33 kg; Height ap3 5 ft. 3 in. ; 18:00 BP 115 / 72; Pulse 74; Resp 17; Pulse Ox 99% on R/A; rs5 15:25 Body Mass Index 40.74 (104.33 kg, 160.02 cm) ap3 ED Course: 15:23 Patient arrived in ED. ec2 15:23 Hawa Scott FNP-C [facility] kb 15:23 Gentry Anand MD is Attending Physician. kb 15:29 Triage completed. ap3 15:30 Arm band placed on left wrist. ap3 15:36 Mikey Hilton, KELECHI is Primary Nurse. rs5 15:37 Patient has correct armband on for positive identification. Call light in reach. Side rs5 rails up X 1. 15:40 Strep Sent. bc6 15:40 SARS-COV-2 Antigen Rapid Sent. bc6 15:40 Flu Sent. bc6 15:41 COVID swab sent to lab. Flu and/or RSV swab sent to lab. Strep swab sent to lab. bc6 16:13 Chest Single View XRAY In Process Unspecified. EDMS 18:00 No provider procedures requiring assistance completed. rs5 18:15 Patient did not have IV access during this emergency room visit. rs5 Administered Medications: 15:47 Drug: Dexamethasone IM 10 mg IM once Route: IM; Site: left deltoid; rs5 16:20 Follow up: Response: No adverse reaction rs5 15:47 Drug: Albuterol Inhalation 2.5 mg Inhalation once Route: Inhalation; rs5 16:20 Follow up: Response: No adverse reaction rs5 15:47 Drug: Ipratropium Inhalation Aerosol 0.5 mg Inhalation once Route: Inhalation; rs5 16:20 Follow up: Response: No adverse reaction rs5 Medication: 17:01 VIS not applicable for this client. rs5 Outcome: 17:59 Discharge ordered by . kb 18:15 Discharged to home ambulatory, rs5 18:15 Condition: stable rs5 18:15 Discharge instructions given to patient, family, Instructed on discharge instructions, follow up and referral plans. medication usage, Demonstrated understanding of instructions, follow-up care, medications, Prescriptions given X 2, 18:17 Patient left the ED. rs5 Signatures: Dispatcher [employer] Hawa Ying, MOBILE PHLEBOTOMIST-C MOBILE PHLEBOTOMIST-Ckb Camilla Reddy RN RN ap3 Mikey Hilton RN RN rs5 Kaia Perry 6 Gentry Anand MD MD ec2 Corrections: (The following items were deleted from the chart) 19:09 18:15 Discharge instructions given to patient, family, Instructed on discharge rs5 instructions, follow up and referral plans. Demonstrated understanding of instructions, follow-up care, rs5
[2024-08-31 21:00] VITALS: TEMP 98.1
[2024-08-31 21:02] VITALS: BP 115/72; O2SAT 99
== END 2024-08-31 18:17 | disposition home or self-care (01) ==
LOC: ER 15:17
DX: J20.9 Acute bronchitis, unspecified (principal); Z11.52 Encounter for screening for COVID-19
CPT/HCPCS: 36415; 71045; 87070; 87081; 87804; 87811; 96372; 99284; J1100; J7613; J7644